=== PATIENT | male | born 1985 | race Caucasian/White ===

== ENCOUNTER 2021-08-14 12:56 | Emergency (ER) | payer OTHER, SELFPAY ==
[2021-08-14 13:17] VITALS: BP 117/77; PULSE 90; RESP 18; TEMP 36.8; O2SAT 96
--- NOTE | 2021-08-14 13:35 | ED.URI ---
HPI - URI/Sore Throat General Chief Complaint: Upper Respiratory Infection Stated Complaint: pressure and soreness around eyes and nose Time Seen by Provider: 08/14/21 13:35 Source: patient Mode of arrival: ambulatory Limitations: no limitations History of Present Illness HPI Narrative: Jose is a 36-year-old male patient who ambulated into the [facility] with complaint of sinus pain and congestion nasal pressure, headache, and occasional sweats. Patient states he has had soreness all over for the last 5 days. Patient did a rapid Covid test yesterday which was negative.. Related Data Home Medications Medication Instructions Recorded Confirmed Unable to Obtain Home Medications 08/14/21 08/14/21 Allergies Allergy/AdvReac Type Severity Reaction Status Date / Time Unable to Assess Allergy Verified 08/14/21 13:36 Review of Systems Review of Systems: CONSTITUTIONAL: + body aches, fever, chills, + sweats. EYES: Denies visual changes, redness, or discharge. ENT: Denies rhinorrhea, +congestion,denies sore throat, or otalgia. CARDIOVASCULAR: Denies chest pain, palpitations, or edema. RESPIRATORY: Denies cough or dyspnea. GASTROINTESTINAL: Denies abdominal pain, nausea, vomiting, or diarrhea. GENITOURINARY: Denies dysuria or hematuria. SKIN: Denies rash, itching, or wounds. MUSCULOSKELETAL: Denies back pain, joint pain, or myalgia. NEUROLOGIC: Denies headache, numbness, tingling, or weakness. PSYCH: Denies depression or anxiety. All systems reviewed & are unremarkable except as noted in HPI and below PMFSH Comments Reviewed Exam Narrative: GENERAL: Well-appearing, well-nourished, and in no acute distress. HEAD: Normocephalic, atraumatic. EYES: EOMI. No redness or drainage. Conjunctivae normal. ENT: Mucous membranes pink and moist. Nares clear. No rhinorrhea. TMs dull with minimal fluid bilaterally. Posterior pharynx is erythemic without edema or exudate . Uvula midline.no maxillary sinus swelling noted. NECK: Normal AROM. Supple. No lymphadenopathy. CHEST: No respiratory distress. Clear to auscultation. MUSCULOSKELETAL: No bony tenderness. EXTREMITIES: Normal range of motion. No edema. SKIN: Warm, dry, no rash. Capillary refill normal. Normal skin turgor. NEURO: No focal deficits. Alert and oriented x3. Gait steady. PSYCH: Normal affect. No signs of depression or anxiety. Course Vital Signs Vital signs: Vital Signs Temperature 36.8 C 08/14/21 13:17 Pulse Rate 90 08/14/21 13:17 Respiratory Rate 18 08/14/21 13:17 Blood Pressure 117/77 08/14/21 13:17 Pulse Oximetry 96 08/14/21 13:17 Temperature 36.8 C 08/14/21 13:17 Pulse Rate 90 08/14/21 13:17 Respiratory Rate 18 08/14/21 13:17 Blood Pressure 117/77 08/14/21 13:17 Pulse Oximetry 96 08/14/21 13:17 MDM - URI/Sore Throat MDM Narrative Medical decision making narrative: Mary has a 4 to 5-day history of nasal congestion, sweats, and body soreness, and headache. Patient was offered a COVID-19 test patient states he took a rapid yesterday and it was negative.. Patient declined any other viral testing. Patient was informed that he only has a 4 to 5-day history and the antibiotics will are not appropriate patient was informed this is most likely a viral illness and further testing needs to be evaluated. Patient states if he was not getting any antibiotics he was leaving and would go to his primary care doctor and get antibiotics on Tuesday. Patient has no severe symptoms on his assessment. Lungs are clear ,bilateral tympanic membranes are mildly dull with minimal fluid. No rhinorrhea is seen. Differential Diagnosis Differential diagnosis: Likely upper respiratory infection Medical Records Attestation: I reviewed the patient's medical records. Critical Care Time Critical Care Time Critical Care Time: No Discharge Plan Discharge Clinical Impression: Upper respiratory infection Qualifiers: URI typ
== END 2021-08-14 13:35 | disposition left against medical advice (07) ==
PROVIDERS: Emergency Provider Nurse Practitioner Family; PCP Internal Medicine
DX: J06.9 Acute upper respiratory infection, unspecified (principal)
CPT/HCPCS: 99211; G0463